=== PATIENT | female | born 1955 | race Caucasian/White ===

== ENCOUNTER → 2017-06-30 | Outpatient (CLI) | payer BC, MEDICARE ==
--- NOTE | 2017-07-04 10:47 | RSPPFT ---
DATE OF PROCEDURE: 06/30/17 COMMENTS: VOLUMES DYNAMIC: FVC and FEV1 mildly reduced. STATIC: TLC low normal, FRC and RV normal. FLOWS: FEV1% normal; FEF 25-75 moderately reduced. DIFFUSION: Normal. FLOW VOLUME LOOP: Mild restriction. IMPRESSION: Mild restrictive ventilatory defect with terminal airflow obstruction. Airways resistance is increased. There is no significant improvement post-bronchodilator. Diffusion capacity is normal.
== END ==
LOC: HRSP 12:11
PROVIDERS: ATTEND Internal Medicine
DX: J45.909 Unspecified asthma, uncomplicated (principal)
CPT/HCPCS: 94060; 94618; 94726; 94729